=== PATIENT | female | born 1935 | race Caucasian/White ===

== ENCOUNTER 2016-10-20 12:28 | Inpatient (IN) | payer OTHER ==
[~2016-10-20] VITALS: Ht 167.6 cm; Wt 88.9 kg
[2016-10-20] MEDS ORDERED: NEURONTIN 300300 MG PO (14:06)
[2016-10-20] MEDS ORDERED: LORTAB 5-325 M1 EACH PO (14:07)
[2016-10-20] MEDS ORDERED: KLONOPIN0.5 MG PO (14:09)
[2016-10-20] MEDS ORDERED: [UNRECOGNIZED DRUG - CODE] SC (14:10)
[2016-10-20] MEDS ORDERED: NOVOLIN 70100 UNIT/1 SQ (14:11)
[2016-10-20] MEDS ORDERED: LIORESAL TAB 1010 MG PO (14:12)
[2016-10-20] MEDS ORDERED: NORVASC10 MG PO (14:14)
[2016-10-20] MEDS ORDERED: COREG 3.125M3.125 MG PO (14:18)
[2016-10-20] MEDS ORDERED: CATAPRES 0.1MG0.1 MG PO (14:21)
[2016-10-20] MEDS ORDERED: LIPITOR TAB 2020 MG PO (14:22)
[2016-10-20] MEDS ORDERED: LASIX20 MG PO (14:22)
[2016-10-20] MEDS ORDERED: COZAAR 50MG TAB50 MG PO (14:23)
[2016-10-20] MEDS ORDERED: MAG-OX 400 TAB400 MG PO (14:24)
[2016-10-20] MEDS ORDERED: CLARITIN 10MG T10 MG PO (14:24)
[2016-10-20] MEDS ORDERED: PLAVIX 75 MG TA75 MG PO (14:24)
[2016-10-20 16:02] LABS: HEMOGLOBIN 10.9 gm/dl (12.3-15.3); RED BLOOD COUNT 3.68 M/UL (4.00-5.10); WHITE BLOOD COUNT 7.5 K/UL (4.5-11.0)
[2016-10-21 04:09] LABS: HEMOGLOBIN 10.7 gm/dl (12.3-15.3); RED BLOOD COUNT 3.62 M/UL (4.00-5.10); WHITE BLOOD COUNT 8.8 K/UL (4.5-11.0)
[2016-10-22 02:49] LABS: HEMOGLOBIN 10.4 gm/dl (12.3-15.3); RED BLOOD COUNT 3.53 M/UL (4.00-5.10); WHITE BLOOD COUNT 8.2 K/UL (4.5-11.0)
[2016-10-23] MEDS ORDERED: ASPIR 8181 MG PO (12:14)
== END 2016-10-23 16:43 | disposition home or self-care (01) | DRG 291 ==
LOC: PROG CARE 12:28 → MED SURG 4 10-22 15:51
PROVIDERS: Physician Assistant; ADMIT Emergency Medicine
DX: I13.0 Hypertensive heart and chronic kidney disease with heart failure and stage 1 through stage 4 chronic kidney disease, or unspecified chronic kidney disease (principal); I50.33 Acute on chronic diastolic (congestive) heart failure; J96.01 Acute respiratory failure with hypoxia; N17.9 Acute kidney failure, unspecified; E11.22 Type 2 diabetes mellitus with diabetic chronic kidney disease; N18.3 Chronic kidney disease, stage 3 (moderate); L98.499 Non-pressure chronic ulcer of skin of other sites with unspecified severity; R11.2 Nausea with vomiting, unspecified; J44.9 Chronic obstructive pulmonary disease, unspecified; I25.10 Atherosclerotic heart disease of native coronary artery without angina pectoris; I35.0 Nonrheumatic aortic (valve) stenosis; R53.81 Other malaise; E87.5 Hyperkalemia; E78.5 Hyperlipidemia, unspecified; D64.9 Anemia, unspecified; Z77.22 Contact with and (suspected) exposure to environmental tobacco smoke (acute) (chronic); Z72.3 Lack of physical exercise; Z79.01 Long term (current) use of anticoagulants; Z79.891 Long term (current) use of opiate analgesic; Z79.4 Long term (current) use of insulin; Z79.899 Other long term (current) drug therapy; Z83.3 Family history of diabetes mellitus; Z82.49 Family history of ischemic heart disease and other diseases of the circulatory system
CPT/HCPCS: ECHO; 36415; 36600; 71010; 71020; 80048; 80053; 80061; 81001; 82550; 82553; 82803; 82962; 83036; 83735; 83880; 84132; 84484; 85027; 85610; 87070; 87077; 87186; 87205; 93005; 93306; J2405